=== PATIENT | female | born 1995 | race African-American/Black ===

== ENCOUNTER 2025-01-29 09:27 | Emergency (ER) | payer OTHER, SELFPAY ==
[2025-01-29 09:33] VITALS: BP 152/104; PULSE 78; RESP 18; TEMP 36.4; O2SAT 100; BMI 31.8
--- NOTE | 2025-01-29 10:18 | ED.URI ---
HPI - URI/Sore Throat General Chief Complaint: Upper Respiratory Symptoms Stated Complaint: Vomiting, Coughing, Headaches, Body Pain Time Seen by Provider: 01/29/25 09:44 Source: patient and old records reviewed Mode of arrival: ambulatory Limitations: no limitations History of Present Illness ED Provider: KHARI NIEVES Narrative: 30 yo female with PMH of HTN (gestational not on meds) who works at [employer] and was in a COVID unit last week. Last night developed chills then this AM had cough, sore throat, n/v this AM. No CP/SOB. She is vaccinated against COVID. She has not had a fever. No recent travel or other exposures. She took nyquil last night. No other medication taken OTC MD elicited complaint: cough, sore throat and rhinorrhea Onset (ago): day(s) (this AM) Consistency: constant Severity: mild Description of mucous: clear Able to tolerate fluids by mouth: Yes Exacerbating factors: swallowing Relieving factors: nothing Context: sick contacts Associated symptoms: chills, myalgias, rhinorrhea, sore throat, nausea and vomiting Treatments prior to arrival: cold medicine Related Data Previous Rx's ?Medication ?Instructions ?Recorded ondansetron 4 mg disintegrating 4 mg PO Q8H PRN nausea and 01/29/25 tablet vomiting #20 tabs Allergies Allergy/AdvReac Type Severity Reaction Status Date / Time No Known Allergies Allergy Unverified 01/29/25 09:33 [No Known Allergies*] Review of Systems Review of Systems: Constitutional : No Weight loss, No Fever, pos Chills ENT/Mouth : pos sore throat, pos Rhinorrhea Eyes: No Swelling, No Redness Cardiovascular : No Chest Pain, No SOB, NoEdema Respiratory : No Cough, No Sputum, No Wheezing Gastrointestinal : Positive Nausea, Positive Vomiting, no Diarrhea, no abdominal Pain, No Hematochezia, No Melena Genitourinary : No Dysuria, No Urinary Frequency, No Hematuria, No Urgency Musculoskeletal : No joint pain, pos Myalgias, No Joint Swelling Skin : No Skin Lesions, No rash Neuro : No Weakness, No Numbness, No Dizziness, No Headache All other systems reviewed and are negative. [facility], [facility] Past Medical History Attestation statement: The following information was validated with the patient. Source: old records reviewed Medical History (Updated 01/29/25 @ 11:13 by Stella Goetz DO) HTN (hypertension) Social History Social History Smoked in Last 30 Days: No Use of substances other than those prescribed or required for medical reasons: Yes Substance Use Type: Marijuana Substance Use Frequency: Occasionally Advance Directives: No Advance Directives Information Provided: Yes Patient : No Physical Exam Vital Signs: Vital Signs: Last Vital Signs Temp 97.6 F 01/29/25 09:33 Pulse 78 01/29/25 09:33 Resp 18 01/29/25 09:33 BP 152/104 H 01/29/25 09:33 Pulse Ox 100 01/29/25 09:33 O2 Del Method Room Air 01/29/25 09:33 BMI result Body Mass Index 31.8 Appearance: Alert. Oriented X3. No acute distress. Eyes: Pupils equal, round and reactive to light. ENT: Pharynx normal. no erythema or exudates, bilateral TMs normal Neck: Normal inspection. Neck supple. CVS: Normal heart rate and rhythm. Pulses normal. Respiratory: No respiratory distress. Breath sounds normal. Abdomen: Soft and nontender. Skin: Skin warm and dry. Normal skin color. Extremities: No lower extremity edema. Neuro: Oriented X 3. No motor deficit. No sensory deficit. CN2-12 intact Medical Decision Making Medical Decision Making MDM Narrative: 30 yo female with PMH of HTN (gestational not on meds) now here with URI symptoms she is not hypoxic has no CP/SOB and her lungs are CTAB. No signs of active throat infection - at this time given exposures will test for viral panel. No other concering complaints. HTN likely due to OTC cough and cold medications Differential Diagnosis Differential Diagnoses: The differential diagnosis associated with the presentation includes viral syndrome, covid, URI Admission/Observation Consideration of admission/observation: Escalation of care including admission/observation considered VS stable, not toxic stable for DC Lab Data [facility] Lab Attestation statement: I reviewed the patient's lab results. Labs: Lab Results 01/29/25 Range/Units 10:10 Influenza Type A (PCR) NEGATIVE (Negative) Influenza Type B (PCR) NEGATIVE (Negative) RSV RNA Qual (PCR) NEGATIVE (Negative) SARS-CoV-2 RNA (RT-PCR) POSITIVE A (Negative) S. pyogenes GrpA KIP Negative (Negative) External Record Review External record reviewed: Outpatient record Prescription Management I considered prescription management with: Other Discharge Plan Discharge Clinical Impression: COVID-19 Patient Disposition: Home, Self-Care Instructions: COVID-19 (Coronavirus Disease 2019) (ED) Additional Instructions: positive for covid rest and stay hydrated return for chest pain, trouble breathing or any other concerns wear a mask for 7 days and protect others Prescriptions: New ondansetron 4 mg tablet,disintegrating 4 mg PO Q8H PRN (Reason: nausea and vomiting) Qty: 20 0RF Stand Alone Forms: Work/School Release Print Language: Greek
[2025-01-29 10:39] LABS: IDNOW Serial# 58CA691E; Strep A Nucleic Acid Negative (Negative)
[2025-01-29 11:09] LABS: Influenza A PCR NEGATIVE (Negative); Influenza B PCR NEGATIVE (Negative); Resp Syncy Virus RNA Qual PCR NEGATIVE (Negative); SARS COV2 PCR INHOUSE POSITIVE (Negative)
[2025-01-29 11:27] VITALS: BP 154/97; PULSE 74; RESP 18; TEMP 37.1; O2SAT 100
== END 2025-01-29 11:27 | disposition home or self-care (01) ==
PROVIDERS: Emergency Provider Emergency Medicine
DX: U07.1 COVID-19 (principal); J02.9 Acute pharyngitis, unspecified
CPT/HCPCS: 0241U; 87651; 99283; 99284

== ENCOUNTER 2025-03-11 12:04 | Emergency (ER) | payer OTHER, SELFPAY ==
--- NOTE | ~2025-03-11 | XR_ITS ---
EXAMINATION: XR LUMBOSACRAL SPINE CLINICAL INFORMATION: low back pain COMPARISON: None available. TECHNIQUE: Three views of the lumbosacral spine. FINDINGS: The vertebral bodies and posterior elements are normal. The disc spaces are preserved and the vertebral alignment is normal. The paraspinal soft tissues are normal. XR/XR lumbar spine 2-3V IMPRESSION: Normal lumbar spine radiographs. Electronically signed by: Evaristo Valverde MD 03/11/2025 01:44 PM EDT
[2025-03-11 12:28] VITALS: PULSE 84; RESP 18; TEMP 36.6; O2SAT 99; BMI 35.4
--- NOTE | 2025-03-11 12:32 | ED.BACK ---
HPI - Back Pain/Injury General Chief Complaint: Back Pain/Injury Stated Complaint: Numbness/tingling both legs & back Time Seen by Provider: 03/11/25 15:24 Source: patient Mode of arrival: ambulatory Limitations: no limitations History of Present Illness ED Provider: [facility] Narrative: 30-year-old woman presenting with low back pain radiating anterior or along her quads, has been working more, no trauma, no fevers or chills, no IV drug use, no numbness in the groin, no numbness in lower extremities, no weakness reported. No dysuria, hematuria or abdominal pain. Related Data Previous Rx's ?Medication ?Instructions ?Recorded ondansetron 4 mg disintegrating 4 mg PO Q8H PRN nausea and 01/29/25 tablet vomiting #20 tabs diazepam 2 mg tablet (Valium) 2 mg PO TID PRN spasms 2 days #6 03/11/25 tabs lidocaine 5 % topical patch 1 patch topical DAILY #15 ea 03/11/25 naproxen 500 mg tablet (Naprosyn) 500 mg PO BID PRN pain #10 tabs 03/11/25 Allergies Allergy/AdvReac Type Severity Reaction Status Date / Time No Known Allergies Allergy Unverified 03/11/25 12:31 [No Known Allergies*] Review of Systems Constitutional: Constitutional: Reports as per [facility] Past Medical History Medical History (Updated 03/11/25 @ 15:57 by Aime Burton DO) HTN (hypertension) Social History Social History Smoked in Last 30 Days: No Use of substances other than those prescribed or required for medical reasons: Yes Substance Use Type: Marijuana Substance Use Frequency: Occasionally Advance Directives: No Advance Directives Information Provided: Yes Physical Exam Vital Signs: Vital Signs: Last Vital Signs Temp 97.8 F 03/11/25 14:48 Pulse 66 03/11/25 14:48 Resp 12 03/11/25 14:48 BP 141/81 H 03/11/25 14:48 Pulse Ox 99 03/11/25 14:48 O2 Del Method Room Air 03/11/25 14:48 BMI result Body Mass Index 35.4 Const: Other: Alert and oriented x4 Examination of the lower back with no midline tenderness from her cervical to lumbosacral spine, some paraspinal tenderness bilaterally, no rashes line pain raise reproducible noted No sensory deficits bilateral lower extremities Has good strength on flexion extension proximally and distally in bilateral lower extremities Course Course Course Narrative: This is a Rapid Medical Exam performed in triage by Justyna Barriga PA-C. Full HPI, ROS and PE to be performed by primary ED provider. 30 yo F presenting to the ED c/o low back pain x3 days w/assoc radiaition down b/l LE w/numbness/tingling down LE. Admits to some ?incontinence, when I have to pee I have to pee has difficulty holding urine for a second then can hold it. denies hematuria/dysuria PE: ambulating w/slow steady gait Plan: UA, XRs Medical Decision Making Medical Decision Making [facility] Narrative: Young woman without risk factors for infectious etiology, presenting with low back pain anterior quad discomfort without motor or sensory deficits, x-ray with loss of lumbar lordosis consistent with spasm, urinalysis does not reveal any evidence for hematuria and she has no flank pain to suspect that this is renal related, see my discharge instructions Differential Diagnosis Differential Diagnoses: The differential diagnosis associated with the presentation includes Muscle spasm, cauda equina, diskitis osteomyelitis, renal colic, trauma Lab Data [facility] Lab Attestation statement: I reviewed the patient's lab results. Labs: Lab Results 03/11/25 Range/Units 12:49 Urine Color Yellow Urine Appearance Clear Urine pH 6.0 (5.0-9.0) Ur Specific Ross >= 1.030 H (1.005-1.025) Urine Protein Trace (Neg-Trace) mg/dL Urine Glucose (UA) Negative (Negative) mg/dL Urine Ketones Trace (Negative) mg/dL Urine Blood Negative (Negative) Urine Nitrite Negative (Negative) Ur Leukocyte Esterase Negative (Negative) Urine Test NEGATIVE (NEGATIVE) Independent Interpretation I performed an independent interpretation of an: Plain X-Ray (Good disc spaces, no fractures, no destructive lesions, loss of lumbar lordosis) Discharge Plan Discharge Clinical Impression: Spasm of muscle of lower back Patient Disposition: Home, Self-Care Instructions: Back Pain (ED) Additional Instructions: As discussed heat packs and ice packs to the area, lidocaine patches but also look into capsaicin ointment patches, Naprosyn 500 mg twice a day, and Valium as we discussed no alcohol, no marijuana, do not drive while taking this medication to help with the spasm, follow up with the PCP you may need physical therapy. Any other issues concerns such as numbness in the groin, loss of bowel or bladder function, spiking fevers or anything else that is not getting better and is concerning to you can come back to the ER for re-evaluation. Prescriptions: New lidocaine 5 % adhesive patch,medicated 1 patch topical DAILY Qty: 15 0RF Rx Instructions: leave on most painful area for up to 12 hrs diazepam [Valium] 2 mg tablet 2 mg PO TID PRN (Reason: spasms) 2 Days Qty: 6 0RF naproxen [Naprosyn] 500 mg tablet 500 mg PO BID PRN (Reason: pain) Qty: 10 0RF No Action ondansetron 4 mg tablet,disintegrating 4 mg PO Q8H PRN (Reason: nausea and vomiting) Qty: 20 0RF Referrals: Roger Almanza MD [Primary Care Provider] - Stand Alone Forms: Work/School Release Print Language: Barbadian
[2025-03-11 13:04] LABS: Appearance Urine Clear; Color Urine Yellow; Glucose Urine UA Negative (Negative); Leukocyte Esterase Urine Negative (Negative); Nitrite Urine Negative (Negative); Specific Gravity - Urine >= 1.030 (1.005-1.025); Urine Blood Negative (Negative); Urine Ketones Trace mg/dL (Negative); Urine Protein Trace mg/dL (Neg-Trace)
[2025-03-11 13:05] LABS: UPreg QC Valid YES; Urine Pregnancy NEGATIVE (NEGATIVE)
[2025-03-11 14:48] VITALS: BP 141/81; PULSE 66; RESP 12; TEMP 36.6; O2SAT 99
[2025-03-11] MEDS: Lidocaine 4 % Patch ADH..PATCH 1 PATCH TRANSDERMA (16:21)
[2025-03-11] MEDS: Ketorolac Tromethamine 15 MG/ML VIAL IM (16:21)
[2025-03-11] MEDS: dexAMETHasone 2 MG TABLET 10 MG PO (16:22)
[2025-03-11 16:23] VITALS: BP 146/80; PULSE 74; RESP 20; TEMP 37.1; O2SAT 100
[2025-03-11 16:31] VITALS: BP 146/80; PULSE 74; RESP 20; TEMP 37.1; O2SAT 100
== END 2025-03-11 16:31 | disposition home or self-care (01) ==
PROVIDERS: Physician Assistant; Emergency Provider Emergency Medicine; PCP Pediatrics
DX: M54.50 Low back pain, unspecified (principal); R20.0 Anesthesia of skin
CPT/HCPCS: 72100; 81003; 81025; 96372; 99284; J1885; J8540

== ENCOUNTER → 2025-03-11 12:34 | Outpatient (BNV) | payer OTHER, SELFPAY | PROVIDERS: Visit Provider Radiology Diagnostic Radiology | DX: M54.50 Low back pain, unspecified (principal) | CPT/HCPCS: 72100 ==

== ENCOUNTER 2025-03-16 16:47 | Emergency (ER) | payer OTHER, SELFPAY ==
--- NOTE | ~2025-03-16 | CT_ITS ---
CLINICAL HISTORY: numbness tingling CT head without contrast Comparison: None Findings: No intra-axial mass, midline shift, hydrocephalus, or acute hemorrhage. No significant atrophy-like change or white matter disease. There is no sinus or mastoid fluid. The orbits are unremarkable. No skull fracture. IMPRESSION: 1. No acute intracranial findings. This document has been electronically signed by: Nora Coates MD on 03/16/2025 19:56:32
[2025-03-16 17:55] VITALS: BP 170/103; PULSE 80; RESP 18; TEMP 36.3; O2SAT 98; BMI 35.5
--- NOTE | 2025-03-16 17:59 | ECG_ITS ---
Test Reason : numbness Blood Pressure : */* mmHG Vent. Rate : 70 BPM Atrial Rate : 70 BPM P-R Int : 152 ms QRS Dur : 76 ms QT Int : 400 ms P-R-T Axes : 41 24 -5 degrees QTcB Int : 432 ms Normal sinus rhythm with sinus arrhythmia Normal ECG When compared with ECG of 22-Aug-2016 20:44, Previous ECG has undetermined rhythm, needs review ST no longer elevated in Inferior leads Inverted T waves have replaced nonspecific T wave abnormality in Inferior leads Nonspecific T wave abnormality no longer evident in Anterior leads Referred By: Junito Sawyer Electronically Signed By: PIPPA GRIGSBY MD
--- NOTE | 2025-03-16 18:00 | ED.GENADULT ---
HPI - General Adult General Chief complaint: General Medical Stated complaint: Numbness and tingling all over body Time Seen by Provider: 03/16/25 23:29 History of Present Illness ED Provider: Daniel NIEVES narrative: The patient is a 22-year-old female who reports that she has no significant past medical history. The patient came to the emergency room 5 days ago on March 11 because she has been having spasms in her lower back and in her legs for a day or 2. She was prescribed diazepam and naproxen and lidocaine patches. And was discharged from the emergency room. She says that she tried using these medications but then has developed new symptoms. She says that 2 or 3 days ago she started having episodes of numbness and spasms in her head that seemed to come out of nowhere. She said they 1st happened when she was lying in bed. Doing nothing in particular. She has pain in her back, her legs, and in her face. No particular headache. She has not had any fever, sweats, chills. She denies any drug use. She denies any medications. She is on no hormonal medications. She denies having any increased stressors in her life. She works as a mental health counselor. Related Data Previous Rx's ?Medication ?Instructions ?Recorded ondansetron 4 mg disintegrating 4 mg PO Q8H PRN nausea and 01/29/25 tablet vomiting #20 tabs diazepam 2 mg tablet (Valium) 2 mg PO TID PRN spasms 2 days #6 03/11/25 tabs lidocaine 5 % topical patch 1 patch topical DAILY #15 ea 03/11/25 naproxen 500 mg tablet (Naprosyn) 500 mg PO BID PRN pain #10 tabs 03/11/25 cyclobenzaprine 10 mg tablet 10 mg PO TID PRN muscle spasm #14 03/17/25 tabs valsartan 80 mg tablet 80 mg PO DAILY #30 tabs 03/17/25 Allergies Allergy/AdvReac Type Severity Reaction Status Date / Time No Known Allergies Allergy Verified 03/16/25 17:57 [No Known Allergies*] Review of Systems Review of Systems: Yes all other systems are reviewed and are negative [facility], [facility] Past Medical History Medical History (Updated 03/17/25 @ 01:03 by Lowell Sanchez MD) HTN (hypertension) Social History Social History Smoked in Last 30 Days: No Use of substances other than those prescribed or required for medical reasons: Yes Substance Use Type: Marijuana Substance Use Frequency: Socially Advance Directives: No Advance Directives Information Provided: Yes Physical Exam ED Vital Signs: Vital Signs - 24 hr 03/16/25 17:55 03/17/25 00:14 03/17/25 00:23 Temperature 97.4 F 97.0 F Pulse Rate 80 80 Respiratory Rate 18 16 Blood Pressure 170/103 H 181/89 H 181/89 H Pulse Oximetry 98 98 Oxygen Delivery Method Room Air Room Air 03/17/25 01:25 Temperature 97.0 F Pulse Rate 80 Respiratory Rate 16 Blood Pressure 181/89 H Pulse Oximetry 98 Oxygen Delivery Method Room Air BMI result Body Mass Index 35.5 Const Other: The patient is awake and alert. She does not seem in acute distress. She looks somewhat fatigued. HENMT Other: Face is symmetrical. Mucous membranes moist. The pharynx is unremarkable. Eyes Other: Pupils are round, equal, and reactive to light. Extraocular movements are intact. Conjunctivae are clear. There was no eyelid twitching at the time that I examined the patient. Neck Neck: Yes normal visual inspection, Yes full ROM and Yes no lymphadenopathy Resp Effort & Inspection: normal respiratory effort Auscultation: clear to auscultation bilaterally Cardio Rate: regular rate Rhythm: regular rhythm Heart sounds: S1 normal heart sound present and S2 normal heart sound present GI Other: The abdomen is soft and nontender Skin Other: Skin the skin is dry and unremarkable Neuro Other: The patient is awake and alert with a normal mental status. Cranial nerves 2-12 are intact. Her neck is supple. She moves her extremities normally. She has no pronator drift. She has 2+ reflexes at the knees and ankles. Toes go down bilaterally. She seems entirely neurologically intact. Extrem Other: No peripheral edema. No calf swelling or tenderness. Course Course Course Narrative: RME: 30 year female presents to ED for 4 generalized numbness/tingling and random spasims of face and body. Patient denies any history of any alcohol or drug abuse. Only smokes marijuana. Patient denies any recent head trauma chest pain or shortness of breath. Patient also states chronic back pain exacerbation going down legs without any urinary/bowel incontinence. Patient showed video of face randomly spasming. Presently NIH score is 0. Medications Administered Discontinued Medications Generic Name Dose Route Start Last Admin Trade Name Shon PRN Reason Stop Dose Admin Acetaminophen 650 mg 03/17/25 00:14 03/17/25 00:17 Acetaminophen 325 Mg Tablet PO 03/17/25 00:15 650 mg ONCE ONE Administration Amlodipine Besylate 10 mg 03/16/25 23:51 03/17/25 00:14 Amlodipine Besylate 10 Mg Tablet PO 03/16/25 23:52 10 mg ONCE ONE Administration Protocol Ketorolac Tromethamine 30 mg 03/17/25 01:00 03/17/25 01:19 Ketorolac Tromethamine 30 Mg/Ml Vial IM 03/17/25 01:01 30 mg ONCE ONE Administration Medical Decision Making Medical Decision Making MDM Narrative: The patient is a 30-year-old female who presents with complaints of twitching in her eyelids and in her head. She also has facial pain. She has also been experiencing what she describes as muscle spasms in her legs. The patient's blood pressure is elevated today. On reviewing her previous ER visits, both 4 days ago, and a couple of months ago, her blood pressures seemed to has been consistently elevated. I suspect that she may have some underlying hypertension. I do not have a good explanation for the twitching and spasm symptoms she is describing. I do not appreciate any neurological deficit and I do not think she seems acutely toxic in any way. At triage a head CT has been ordered that is negative. I do not think she requires further evaluation neurologically. I do not think she requires a spinal tap. She is not describing symptoms that make me think she might have had a subarachnoid hemorrhage. I think she may be discharged for an outpatient workup. Given the blood pressures she has had today and also a few months ago I think it would be reasonable for me to start her on an antihypertensive as she says there may be some delay in getting into see her PCP. She was therefore prescribed valsartan 80 mg daily. For her symptoms of spasms she has been prescribed cyclobenzaprine. Lab Data 03/16/25 18:10 03/16/25 18:10 Labs: Lab Results 03/16/25 Range/Units 18:10 WBC 7.5 (4.8-10.8) X10*3/uL RBC 3.69 L (4.20-5.50) X10*6/uL Hgb 11.9 L (12.0-16.0) g/dl Hct 35.8 L (37.0-47.0) % MCV 97.0 (80.0-98.0) fL MCH 32.2 (27.0-33.0) pg MCHC 33.2 (31.0-35.0) g/dl RDW 12.6 (11.0-16.0) % Plt Count 274 (160-400) X10*3/uL MPV 9.2 L (9.4-12.3) fL Immature Gran % (Auto) 0.4 (0.0-0.4) % Neut % (Auto) 51.2 (45-73) % Lymph % (Auto) 39.6 (20-40) % Coos % (Auto) 5.2 (2-11) % Eos % (Auto) 2.9 (0-4) % Baso % (Auto) 0.7 (0-2) % Lymph # (Auto) 3.0 (1.2-4.9) X10*3/uL Coos # (Auto) 0.4 (0.1-1.2) X10*3/uL Eos # (Auto) 0.2 (0.0-0.4) X10*3/uL Baso # (Auto) 0.1 (0.0-0.2) X10*3/uL Abs Immat Gran (auto) 0.03 (0.00-0.03) X10*3/uL Absolute Neuts (auto) 3.8 (2.0-8.3) x10*3/uL Absolute Nucleated RBC 0.000 (0.0-0.012) X10*3/uL Nucleated RBC % (auto) 0.0 (0.0-0.2) /100WBC Sodium 141 (135-145) mmol/L Potassium 3.8 (3.3-5.1) mmol/L Chloride 108 (96-108) mmol/L Carbon Dioxide 26 (22-29) mmol/L Anion Gap 11 L (12-20) BUN 20 H (9-16) mg/dL Creatinine 1.00 (0.5-1.4) mg/dL Estim Creat Clear Calc 93.0 Estimated GFR > 60 Random Glucose 82 (60-115) mg/dL Calcium 9.3 (8.4-10.2) mg/dL Magnesium 2.1 (1.6-2.6) mg/dL Total Bilirubin 0.1 (0.0-1.0) mg/dL AST 19 (5-31) U/L ALT 10 (0-31) U/L Alkaline Phosphatase 65 (39-117) U/L Total Creatine Kinase 73 (26-140) U/L Troponin I High Sens < 2.7 (<3.5-17.0) ng/L Total Protein 6.9 (6.5-8.0) g/dL Albumin 4.2 (3.5-5.0) g/dL Beta HCG, Quant < 2 mIU/mL Ethyl Alcohol < 10 mg/dL Discharge Plan Discharge Clinical Impression: Muscle twitching, Hypertension Patient Disposition: Home, Self-Care Instructions: Leg Cramps (ED), Hypertension (ED), Muscle Spasm (ED) Additional Instructions: Your blood pressure reading today is high. Looking back on your previous emergency room visits your blood pressures were also high in January and when you were here 4 days ago. I have sent a prescription for a medication called valsartan which I think might be helpful for your blood pressure. Please start taking this once a day. Most importantly you will need to follow up with your primary care doctor for ongoing management and evaluation of your blood pressure. With regard to the twitches in spasms you has been experiencing I do not have a good explanation for why these are happening. Please also discuss this with your primary care doctor. Also I have given you the contact information for a neurology office. Please contact the office to see if you can get an appointment for further discussion of these symptoms. You may need to get a referral from your primary care doctor so again, contact your primary care doctor's office tomorrow to try to expedite your follow up. Return to the emergency room if significantly worse. Prescriptions: New valsartan 80 mg tablet 80 mg PO DAILY Qty: 30 0RF cyclobenzaprine 10 mg tablet 10 mg PO TID PRN (Reason: muscle spasm) Qty: 14 0RF No Action lidocaine 5 % adhesive patch,medicated 1 patch topical DAILY Qty: 15 0RF Rx Instructions: leave on most painful area for up to 12 hrs diazepam [Valium] 2 mg tablet 2 mg PO TID PRN (Reason: spasms) 2 Days Qty: 6 0RF naproxen [Naprosyn] 500 mg tablet 500 mg PO BID PRN (Reason: pain) Qty: 10 0RF ondansetron 4 mg tablet,disintegrating 4 mg PO Q8H PRN (Reason: nausea and vomiting) Qty: 20 0RF Referrals: Roger Almanza MD [Primary Care Provider] - (Hypertension) Stand Alone Forms: Work/School Release Interventions: ED Discharge Assessment Last Done: 03/17/25 01:25 Discharge Date/Time: 03/17/25 01:25 Print Language: Greek
[2025-03-16 18:21] LABS: MANUAL DIFF FLAG NO
[2025-03-16 18:34] LABS: Basophils Absolute Auto 0.1 X10*3/uL (0.0-0.2); Basophils Percent Auto 0.7 % (0-2); Eosinophils Absolute Auto 0.2 X10*3/uL (0.0-0.4); Eosinophils Percent Auto 2.9 % (0-4); Hematocrit 35.8 % (37.0-47.0); Hemoglobin 11.9 g/dl (12.0-16.0); Imm Gran Abs Auto 0.03 X10*3/uL (0.00-0.03); Imm Gran Pct Auto 0.4 % (0.0-0.4); Lymphocytes Percent Auto 39.6 % (20-40); Mean Corpuscular HGB Conc 33.2 g/dl (31.0-35.0); Mean Corpuscular Hemoglobin 32.2 pg (27.0-33.0); Mean Platelet Volume 9.2 fL (9.4-12.3); Monocytes Absolute Auto 0.4 X10*3/uL (0.1-1.2); Monocytes Percent Auto 5.2 % (2-11); Neutrophils Absolute Auto 3.8 x10*3/uL (2.0-8.3); Neutrophils Percent Auto 51.2 % (45-73); Platelet Count 274 X10*3/uL (160-400); Red Blood Count 3.69 X10*6/uL (4.20-5.50); Red Cell Distribution Width 12.6 % (11.0-16.0); White Blood Count 7.5 X10*3/uL (4.8-10.8)
[2025-03-16 18:35] LABS: Ethanol < 10 mg/dL
[2025-03-16 18:37] LABS: Alanine Aminotransferase 10 U/L (0-31); Albumin Level 4.2 g/dL (3.5-5.0); Alkaline Phosphatase 65 U/L (39-117); Anion Gap 11 (12-20); Aspartate Amino Transferase 19 U/L (5-31); Bilirubin Total 0.1 mg/dL (0.0-1.0); Blood Urea Nitrogen 20 mg/dL (9-16); Calcium 9.3 mg/dL (8.4-10.2); Carbon Dioxide 26 mmol/L (22-29); Chloride 108 mmol/L (96-108); Estimated Glomerular Filt Rate > 60; Glucose Random 82 mg/dL (60-115); Magnesium 2.1 mg/dL (1.6-2.6); Potassium 3.8 mmol/L (3.3-5.1); Sodium 141 mmol/L (135-145); Total Protein 6.9 g/dL (6.5-8.0)
[2025-03-16 18:45] LABS: HCG Quantitative < 2 mIU/mL; Troponin-I High Sensitivity < 2.7 ng/L (<3.5-17.0)
--- NOTE | 2025-03-16 23:45 | PC.NURSE ---
provider into assess pt.
[2025-03-17 00:14] VITALS: BP 181/89
[2025-03-17] MEDS: amLODIPine Besylate 10 MG TABLET PO (00:14)
[2025-03-17] MEDS: Acetaminophen 325 MG TABLET 650 MG PO (00:17)
--- NOTE | 2025-03-17 00:19 | PC.NURSE ---
medicated per mar.
[2025-03-17 00:23] VITALS: BP 181/89; PULSE 80; RESP 16; TEMP 36.1; O2SAT 98
[2025-03-17] MEDS: Ketorolac Tromethamine 30 MG/ML VIAL IM (01:19)
--- NOTE | 2025-03-17 01:24 | PC.NURSE ---
Medicated per Dec, Reviewed discharge instructions with pt. pt verbalized understanding no sign of distress.
[2025-03-17 01:25] VITALS: BP 181/89; PULSE 80; RESP 16; TEMP 36.1; O2SAT 98
== END 2025-03-17 01:25 | disposition home or self-care (01) ==
PROVIDERS: Physician Assistant; Emergency Provider Emergency Medicine; PCP Pediatrics
DX: M62.830 Muscle spasm of back (principal); I49.8 Other specified cardiac arrhythmias; R20.0 Anesthesia of skin; M54.50 Low back pain, unspecified; R10.2 Pelvic and perineal pain; I10 Essential (primary) hypertension; R25.3 Fasciculation; Z79.899 Other long term (current) drug therapy
CPT/HCPCS: 36415; 70450; 80053; 80307; 82550; 83735; 84484; 84702; 85025; 93005; 96372; 99284; 99285; J1885

== ENCOUNTER → 2025-03-16 17:59 | Outpatient (BNV) | payer OTHER, SELFPAY | PROVIDERS: PCP Pediatrics; Visit Provider Student in an Organized Health Care Education/Training Program | DX: R20.2 Paresthesia of skin (principal) | CPT/HCPCS: 70450 ==

== ENCOUNTER → 2025-03-16 17:59 | Outpatient (BNV) | payer OTHER, SELFPAY | PROVIDERS: Emergency Provider Emergency Medicine; PCP Pediatrics; Visit Provider Internal Medicine Cardiovascular Disease | DX: R20.2 Paresthesia of skin (principal) | CPT/HCPCS: 93010 ==